=== PATIENT | male | born 1960 | race Caucasian/White ===

== ENCOUNTER 2021-07-21 00:38 | Emergency (ER) | payer OTHER ==
[~2021-07-21] VITALS: Ht 170.2 cm; Wt 81.6 kg
[~2021-07-21 00:38] MED LIST: PERCOCET 5/3251 TAB PO
[2021-07-21] MEDS ORDERED: BUPROPION XL450 MG (00:53)
[2021-07-21] MEDS ORDERED: ABILIFY2 MG (00:54)
[2021-07-21] MEDS ORDERED: PAXIL30 MG (00:54)
[2021-07-21] MEDS ORDERED: DEPAKOTE ER250 MG (00:54)
[2021-07-21] MEDS ORDERED: XANAX2 MG (00:54)
[2021-07-21] MEDS ORDERED: PEPCID AC20 MG PO (02:35)
[2021-07-21] MEDS ORDERED: LEVSIN0.125 MG PO (02:35)
== END 2021-07-21 02:52 | disposition home or self-care (01) ==
LOC: ER 00:38
DX: K29.70 Gastritis, unspecified, without bleeding (principal); R10.13 Epigastric pain; K80.20 Calculus of gallbladder without cholecystitis without obstruction; Z91.013 Allergy to seafood